=== PATIENT | female | born 1955 | race Caucasian/White ===

== ENCOUNTER 2025-07-20 15:17 | Emergency (ER) | payer MEDICARE, OTHER, SELFPAY ==
[2025-07-20 15:21] VITALS: BP 134/64
[2025-07-20 16:01] LABS: Hematocrit 35.5 % (37.0-47.0); Hemoglobin 12.1 g/dL (12.0-16.0); Mean Corp Hgb Conc. 34.1 g/dL (33.0-37.0); Mean Corpuscular Volume 94.7 fL (81.0-99.0); Nucleated Red Blood Cells % 0 %; Platelet Count 233 10^3/uL (130-400); Red Cell Dist. Width 12.2 % (11.5-14.5)
[2025-07-20 16:13] LABS: ALT (SGPT) 166 U/L (0-35); AST (SGOT) 190 U/L (14-36); Albumin 4.0 g/dl (3.5-5.0); Alkaline Phosphatase 72 U/L (38-126); Blood Urea Nitrogen 20 mg/dl (7-17); Calcium 9.1 mg/dl (8.4-10.2); Carbon Dioxide 29 mmol/L (22-30); Chloride 104 mmol/L (98-107); Glucose 115 mg/dl (70-99); Potassium 4.3 mmol/L (3.5-5.1); Sodium 136 mmol/L (135-145); Total Protein 6.9 g/dl (6.3-8.2); eGFR > 60.00
[2025-07-20 16:22] LABS: Troponin I < 0.012 ng/ml
[2025-07-20 17:06] VITALS: BP 126/68
--- NOTE | 2025-07-20 17:08 | ED.GENMED ---
History of Present Illness
<Johann Ellis MD, Resident - Last Filed: 07/20/25 19:51>
General
Chief Complaint: Fainting/Passed Out
Source: patient and spouse
Time Seen by Provider: 07/20/25 16:51
History of Present Illness
History of Present Illness:
Ms. Omalley is a 69-year-old female, with past medical history significant for essential hypertension, hypothyroidism, hypercholesterolemia, on weight loss medication, who came to the ER after a fall.
Around 3 AM, this morning she had some dizziness and chills, she went to bed and then when she woke up around 6 AM to go to the bathroom, she was dizzy at that time, warm profuse sweating, she fell down and hit her head on the door frame before
going to the floor. Her was there, who got her up to the floor. The states that she had loss of consciousness for a couple of seconds. The does not remember the event of loss of consciousness. Shortly after the fall, she had
an episode of vomiting. After that, she felt fine until her regular follow-up today went to her daughter's place for lunch. Her family insisted that she should come to the ER to get herself checked.
She has some headache and back tenderness but denies any nausea, ear or nose discharge, or any further vomiting episodes.
She is not on any blood thinners.
Past History
<Johann Ellis MD, Resident - Last Filed: 07/20/25 19:51>
Past History
ED Past Medical History: HTN, Hypercholesterolemia and Hypothyroidism
ED Past Surgical History: Cholecystectomy, Gynecological (Total hysterectomy for endometrial cancer) and Orthopedic (Bilateral knee replacement)
Patient has exhibited threatening behavior?: No
Social History
Tobacco: Non-smoker
Alcohol: Occasional
Drug: None
Personal:
Living: with family
Review of Systems
<Johann Ellis MD, Resident - Last Filed: 07/20/25 19:51>
Review of Systems
All Other Systems: ROS reviewed and negative except as documented in HPI and ROS
Phy Exam
<Johann Ellis MD, Resident - Last Filed: 07/20/25 19:51>
General Physical Exam
General Presentation: well appearing and no apparent distress
General age: appears stated age
General Skin: warm and dry
General Habitus: normal
General Mental: alert
General Hydration: appears well hydrated
Cardiovascular Exam
Cardiovascular Exam: regular rate/rhythm, no edema, no murmur and normal peripheral pulses
Pulmonary Exam
Pulmonary Exam: lungs clear, no respiratory distress, no crackles and no wheezing
Gastrointestinal Exam
Gastrointestinal Exam: normal bowel sounds, non tender and soft
Neurological Exam
Neurological Exam: alert, oriented x3, no motor deficits and no sensory deficits
Musculoskeletal Exam
Musculoskeletal Exam: full ROM
Skin Exam
Skin Exam: normal color and warm/dry
Psychiatric Exam
Psychiatric Exam: normal mood/affect
Course
<Johann Ellis MD, Resident - Last Filed: 07/20/25 19:51>
Orders/Labs/Results
Orders:
Orders
07/20/25 15:27
EKG [Electrocardiogram (*1)] Urgent
Reason for Study: Syncope
EKG- Treatment ONCE
07/20/25 15:38
Complete Blood Count/With Diff Urgent
Comprehensive Metabolic Panel Urgent
Troponin I Urgent
07/20/25 17:16
CT Cervical Spine W/o Iv Contr Urgent
Reason For Exam: history of fall
07/20/25 17:17
CT Head W/o Iv Contrast Urgent
Comment:
Reason For Exam: hx of fall
Abnormal Lab Results
07/20/25
15:38
RBC 3.75 L 10^6/uL
(4.20-5.40)
Hct 35.5 L %
(37.0-47.0)
MCH 32.3 H pg
(27.0-31.0)
Abs Immat Gran (auto) 0.1 H 10^3/uL
(0-0.05)
Absolute Neuts (auto) 8.3 H 10^3/uL
(1.4-6.5)
Absolute Lymphs (auto) 0.1 L 10^3/uL
(1.2-3.4)
Immature Gran % 0.6 H %
(0-0.5)
Neutrophils % 95.5 H %
(42.2-75.2)
Lymphocytes % 1.0 L %
(20.5-51.1)
BUN 20 H mg/dl
(7-17)
Glucose 115 H mg/dl
(70-99)
AST 190 H U/L
(14-36)
ALT 166 H U/L
(0-35)
07/20/25 15:38
07/20/25 15:38
Vital Signs
Initial and Last Documented VS:
Initial Vital Signs
Temp Pulse Resp BP Pulse Ox
98 F 86 16 134/64 99
07/20/25 15:21 07/20/25 15:21 07/20/25 15:21 07/20/25 15:21 07/20/25 15:21
Last Documented Vital Signs
Temp Pulse Resp BP Pulse Ox
98 F 75 19 128/68 99
07/20/25 15:21 07/20/25 19:45 07/20/25 18:45 07/20/25 19:44 07/20/25 17:18
Cathilt;Reji Vyas, DO - Last Filed: 07/20/25 18:02>
Orders/Labs/Results
Orders:
Orders
07/20/25 15:27
EKG [Electrocardiogram (*1)] Urgent
Reason for Study: Syncope
EKG- Treatment ONCE
07/20/25 15:38
Complete Blood Count/With Diff Urgent
Comprehensive Metabolic Panel Urgent
Troponin I Urgent
07/20/25 17:16
CT Cervical Spine W/o Iv Contr Urgent
Reason For Exam: history of fall
07/20/25 17:17
CT Head W/o Iv Contrast Urgent
Comment:
Reason For Exam: hx of fall
Abnormal Lab Results
07/20/25
15:38
RBC 3.75 L 10^6/uL
(4.20-5.40)
Hct 35.5 L %
(37.0-47.0)
MCH 32.3 H pg
(27.0-31.0)
Abs Immat Gran (auto) 0.1 H 10^3/uL
(0-0.05)
Absolute Neuts (auto) 8.3 H 10^3/uL
(1.4-6.5)
Absolute Lymphs (auto) 0.1 L 10^3/uL
(1.2-3.4)
Immature Gran % 0.6 H %
(0-0.5)
Neutrophils % 95.5 H %
(42.2-75.2)
Lymphocytes % 1.0 L %
(20.5-51.1)
BUN 20 H mg/dl
(7-17)
Glucose 115 H mg/dl
(70-99)
AST 190 H U/L
(14-36)
ALT 166 H U/L
(0-35)
07/20/25 15:38
07/20/25 15:38
Vital Signs
Initial and Last Documented VS:
Initial Vital Signs
Temp Pulse Resp BP Pulse Ox
98 F 86 16 134/64 99
07/20/25 15:21 07/20/25 15:21 07/20/25 15:21 07/20/25 15:21 07/20/25 15:21
Last Documented Vital Signs
Temp Pulse Resp BP Pulse Ox
98 F 75 19 128/68 99
07/20/25 15:21 07/20/25 19:45 07/20/25 18:45 07/20/25 19:44 07/20/25 17:18
<Johann Ellis MD, Resident - Last Filed: 07/20/25 19:51>
MDM/Problems Addressed
Differential Diagnosis Includes:
Differential diagnosis includes but is not limited to
Head injury
Skull fracture
Contusion
Concussion
Cervical spine injury
MDM/Problems Addressed:
Based on the clinical assessment, the patient did hit her head after a fall, brief loss of consciousness for couple of seconds associated with an episode of vomiting
Has remained clinically fine over the next 10 to 12 hours. No bleeding from ear nose or throat
Blood work looks great-no issues with electrolytes
EKG normal and troponin levels normal
Head CT negative for any intracranial bleed, CT cervical spine within normal limits
Patient is on Zepbound and her appetite is suppressed-recommended to follow-up with primary care physician and make shared decision making about to Zepbound dosing
Encouraged fluid intake
Advised to avoid standing suddenly and take time to get up
Reassured and discharged home
<Johann Ellis MD, Resident - Last Filed: 07/20/25 19:51>
*Pulse Oximetry
SaO2: 99
Oxygen Mode of Delivery: Room air
Patient hypoxic: no
*Critical Care Note
Total Time (30-74mins, 75-104mins- exclusive of procedures): Not Applicable
ED Attending Note
<Johann Ellis MD, Resident - Last Filed: 07/20/25 19:51>
-
Portions of this chart may have been created with voice recognition software.� Occasional wrong word or��sound alike� substitutions may have occurred due to the inherent limitations of voice recognition software.
<Reji Vyas, DO - Last Filed: 07/20/25 18:02>
ED Attending Note
Patient seen and examined by attending physician: Yes
I performed a history and physical exam of patient and discussed management with resident, I reviewed resident's note and agree with documented findings and plan of care.: Yes
ED Attending Note:
Seen with resident examined independently 69-year-old female felt chilled around 330 covered in blankets got up around 6 passed out hit her head vomited, feeling fine now my evaluation no acute distress stable vital signs requesting water wet CT of
the head
Discharge Plan
Departure
Patient Disposition: Home (Routine Discharge)
Date of Disposition: 07/20/25
Time of Disposition: 19:44
Patient with high blood pressure during this ER visit?: No
Condition: Good
Discharge Problem:
Head injury
Instructions: Syncope (Fainting) (DC), Concussion in adults - ED (DC)
Prescriptions:
No Action
lisinopril 20 mg Tablet
20 mg PO DAILY
pravastatin [Pravachol] 20 mg Tablet
20 mg PO DAILY
levothyroxine 112 mcg Tablet
112 mcg PO DAILY
Zepbound 12.5 mg/0.5 mL Pen Injector
12.5 mg SC QWEEK
Rx Instructions:
Tuesday
Referrals:
Cheyanne Cross MD [Family Provider, Family Practice] - Next open appointment
Activity Restrictions/Additional Instructions:
Drink plenty of fluids Tylenol as needed for fever or chills
Interventions
Interventions:
*Risk Screen - Suicide Last Done: 07/20/25 17:11
*General Assessment Last Done: 07/20/25 17:10
*Neglect/Abuse Screening Last Done: 07/20/25 17:11
*ED- Fall Risk Assessment Last Done: 07/20/25 15:21
*ED COVID-19 Vaccine History Last Done: 07/20/25 17:10
*ED Influenza Vaccine History Last Done: 07/20/25 17:10
ED- Cardiac Assessment Last Done: 07/20/25 19:45
ED- Neurological Assessment Last Done: 07/20/25 19:45
Discharge Date and Time
Print Language: GREEK
[2025-07-20 17:09] VITALS: BMI 30.4
[2025-07-20 18:00] VITALS: BP 119/66
[2025-07-20 19:44] VITALS: BP 128/68
== END 2025-07-20 19:55 | disposition home or self-care (01) ==
LOC: EMR 15:17
PROVIDERS: Emergency Medicine; EMERGENCY PHYSICIAN Emergency Medicine; FAMILY PHYSICIAN Family Medicine
DX: S09.90XA Unspecified injury of head, initial encounter (principal); W18.39XA Other fall on same level, initial encounter; E78.00 Pure hypercholesterolemia, unspecified; E03.9 Hypothyroidism, unspecified; I10 Essential (primary) hypertension; Z90.49 Acquired absence of other specified parts of digestive tract; Z90.710 Acquired absence of both cervix and uterus
CPT/HCPCS: 99284; 70450; 72125; 80053; 84484; 85025; 93005